=== PATIENT | male | born 1965 | race Caucasian/White ===

== ENCOUNTER 2018-05-09 03:13 | Emergency (ER) | payer OTHER ==
--- NOTE | 2018-05-09 05:33 | PDOC ---
History of Present Illness - General Chief Complaint: Chest Pain Stated Complaint: CHEST PAIN Time Seen by Provider: 05/09/18 05:00 History Source: Patient - History of Present Illness Initial Comments: 53 y/o M w/PMH of DM, HLD, GERD presents to the ER due to cold like symptoms with disorientation. He has had a cough with nasal drip since Tuesday and on developed L sided chest pain from coughing. The cough has not subsided despite taking dayquil and mucinex DM. He went to urgent care on this weekend and was given amox-clav which did not help his symptoms (he has taken 4/10 days so far). He has disorientation after he has coughing fits which are worse after he lays down. He has had some soft stool since taking the abx but denies any watery stool or blood in urine. He denies N/V/F/C, SOB, abd pain, LE edema. Past History - Past Medical History Allergies/Adverse Reactions: Allergies Allergy/AdvReac Type Severity Reaction Status Date / Time No Known Allergies Allergy Verified 05/09/18 03:31 Home Medications: Ambulatory Orders NK [No Known Home Medication] 05/09/18 - Suicide/Smoking/Psychosocial Hx Smoking History: Never smoked Have you smoked in the past 12 months: No Information on smoking cessation initiated: No Hx Alcohol Use: No Drug/Substance Use Hx: No Review of Systems - Review of Systems Able to Perform ROS?: Yes Constitutional: Yes: Night Sweats. No: Chills, Fever HEENTM: No: Throat Pain Respiratory: Yes: Cough. No: Shortness of Breath Cardiac (ROS): Yes: Chest Pain (L sided when coughing and taking deep breath), Syncope ABD/GI: Yes: Other (Soft stool). No: Constipated, Nausea, Vomiting : No: Burning, Discharge *Physical Exam - Vital Signs Last Vital Signs Temp Pulse Resp BP Pulse Ox 98.3 F 93 H 18 129/88 96 05/09/18 03:15 05/09/18 03:15 05/09/18 03:15 05/09/18 03:15 05/09/18 03:15 - Physical Exam General Appearance: Yes: Nourished, Appropriately Dressed. No: Apparent Distress HEENT: positive: EOMI, Pharyngeal Erythema (From post nasal drip). negative: Tonsillar Exudate, Tonsillar Erythema, TM Bulging, TM Dull, TM Erythema Neck: positive: Supple Respiratory/Chest: positive: Wheezing (Mild end expiratory wheezing) Cardiovascular: positive: Regular Rhythm, Regular Rate, S1, S2. negative: Murmur Gastrointestinal/Abdominal: positive: Normal Bowel Sounds, Soft Musculoskeletal: positive: Other (L chest wall tenderness under L pectoral muscle) Extremity: negative: Pedal Edema, Swelling Neurologic: positive: publications editor II-XII NML intact, Fully Oriented, Alert Medical Decision Making - Medical Decision Making 05/09/18 05:48 Will give duoneb and check CXR at this time. Pt's disorientation is likely due to hypoxia after coughing fit. 05/09/18 05:50 Pt urged to f/u with PCP and see neuro for hx of syncope after laughing. 05/09/18 07:03 Pt feeling better after neb. Pt told to f/u with PCP in 2-3 days to f/u on his symptoms. Advised to continue taking his nasal spray, allergy medication ( antihistamine), and to take plain mucinex. Informed to come back to ER if he has worsening of current symptoms or onset of new concerning symptoms. *DC/Admit/Observation/Transfer Diagnosis at time of Disposition: URI (upper respiratory infection) - Discharge Dispostion Disposition: HOME Condition at time of disposition: Fair Decision to Admit order: No - Referrals - Patient Instructions Additional Instructions: Follow up with your primary care doctor in 2-3 days. Take plain mucinex for the cough. Continue taking your allergy medication and nasal spray. Do not take any medication that ends in D or DM such as mucinex-D. If you have worsening of your current symptoms or onset of new concerning symptoms come back to the ER. - Post Discharge Activity
[2018-05-09 05:40] VITALS: BP 129/88; PULSE 93; TEMP 98.3; BMI 34.0
[2018-05-09] MEDS ORDERED: ALBUTEROL SO4 2.5/IPRATROPIUM 0.5 INH SOL 3 ML VIAL.NEB. NEB ONE ×2 (05:49→06:22)
--- NOTE | 2018-05-09 08:32 | PDOC ---
Attending Attestation - Resident Resident Name: Everardo Pond - HPI HPI: 05/09/18 08:30 53M here with URI symptoms. He is concerned that he is having paroxysmal coughing fits followed by lightheadedness and disoriention that is self limited - Physicial Exam PE: 05/09/18 08:31 Well appearing, NAD, AOx3 NCAT Neck supple LCTAB Abd soft, nt, nd - Medical Decision Making 05/09/18 08:31 Likely URI, less likely pna, acs
--- NOTE | 2018-05-09 12:34 | EKG ---
Test Reason : Blood Pressure : / mmHG Vent. Rate : 094 BPM Atrial Rate : 094 BPM P-R Int : 142 ms QRS Dur : 082 ms QT Int : 356 ms P-R-T Axes : 038 023 044 degrees QTc Int : 445 ms NORMAL SINUS RHYTHM NORMAL ECG Confirmed by MD YASEMIN, ALEJANDRINA ([id number]) on 05/09/2018 12:33:49 PM Referred By: Confirmed By:ALEJANDRINA HAZEL MD
== END 2018-05-09 07:37 | disposition home or self-care (01) ==
LOC: JER 03:13
PROC: 3E0F7GC Introduction of Other Therapeutic Substance into Respiratory Tract, Via Natural or Artificial Opening (ICD-10-PCS; principal; 2018-05-09)
DX: J06.9 Acute upper respiratory infection, unspecified (principal)
CPT/HCPCS: 71046-TC-FY; 93005; 93010; 99282-25; J7620